=== PATIENT | female | born 1960 | race Caucasian/White ===

== ENCOUNTER 2024-10-06 23:18 | Emergency (ER) | payer BC, SELFPAY ==
[2024-10-06 23:19] VITALS: BMI 24.4
[2024-10-06 23:22] VITALS: BP 178/90
[2024-10-07 00:03] VITALS: BP 160/84
[2024-10-07 00:43] LABS: % Eosinophils 4.5 % (0-6); % Immature Granulocytes 0.6 % (0-0.5); % Lymphocytes 45.7 % (20.5-51.1); % Monocytes 8.8 % (1.7-9.3); % Neutrophils 39.4 % (42.2-75.2); Absolute Basophils 0.1 10^3/uL (0-0.2); Absolute Eosinophils 0.2 10^3/uL (0-0.7); Absolute Lymphocytes 2.2 10^3/uL (1.2-3.4); Absolute Monocytes 0.4 10^3/uL (0.1-0.6); Absolute Neutrophils 1.9 10^3/uL (1.4-6.5); Hematocrit 37.8 % (37.0-47.0); Hemoglobin 13.1 g/dL (12.0-16.0); Mean Corp Hgb Conc. 34.7 g/dL (33.0-37.0); Mean Corpuscular Hgb 30.5 pg (27.0-31.0); Mean Corpuscular Volume 88.1 fL (81.0-99.0); Mean Platelet Volume 9.3 fL (7.4-10.4); Nucleated Red Blood Cells % 0 %; Platelet Count 223 10^3/uL (130-400); Red Blood Cell Count 4.29 10^6/uL (4.20-5.40); Red Cell Dist. Width 12.9 % (11.5-14.5); White Blood Cell Count 4.9 10^3/uL (4.8-10.8)
[2024-10-07 00:48] LABS: ALT (SGPT) 20 U/L (0-35); AST (SGOT) 34 U/L (14-36); Albumin 4.8 g/dl (3.5-5.0); Alkaline Phosphatase 55 U/L (38-126); Blood Urea Nitrogen 20 mg/dl (7-17); Calcium 9.5 mg/dl (8.4-10.2); Carbon Dioxide 25 mmol/L (22-30); Chloride 101 mmol/L (98-107); Estimated Creatinine Clearance 77 ml/min; Glucose 98 mg/dl (70-99); Lipase 127 U/L (23-300); Potassium 4.2 mmol/L (3.5-5.1); Sodium 137 mmol/L (135-145); Total Bilirubin 0.4 mg/dl (0.2-1.3); Total Protein 7.5 g/dl (6.3-8.2); eGFR > 60.00
--- NOTE | 2024-10-07 00:56 | ED.GENMED ---
History of Present Illness
General
Chief Complaint: Chest Pain
Source: patient
Exam Limitations: none
Time Seen by Provider: 10/07/24 00:50
Nursing documentation reviewed up to this point in time: agreed with
History of Present Illness
History of Present Illness:
Patient is a healthy 64-year-old female the past medical history of borderline hyperlipidemia who comes in with complaints of chest pain rating into her back. Patient reports that the symptoms started at around 5 PM and have been fairly constant.
Patient reports that they are mild at this time. She denies any fever and cough. She denies shortness of breath. She denies a history of PE and DVT. Patient reports she has a history of GERD but wants to make sure it is not her heart. She
denies leg pain and leg swelling. Patient reports that she is an avid runner and lately with running, she has had no chest pain at all. Patient reports that her baseline heart rate is in the high 40s.
Past History
Past History
ED Past Medical History: Other (Borderline hyperlipidemia)
ED Past Surgical History: Other
Social History
Tobacco: Non-smoker
Alcohol: Other
Drug: None
Personal:
Living: with family
Employment: Other
Family History
Family History: Other
Review of Systems
Review of Systems
Allergies reviewed?: Yes
All Other Systems: ROS reviewed and negative except as documented in HPI and ROS
Constitutional: Reports no symptoms
EENT: Reports no symptoms
Respiratory: Reports no symptoms
Cardiac: Reports chest pain
ABD/GI: Reports no symptoms
: Reports no symptoms
Musculoskeletal: Reports no symptoms
Skin: Reports no symptoms
Neurological: Reports no symptoms
Endocrine: Reports no symptoms
Hematologic/Lymphatic: Reports no symptoms
Psychiatric: Reports no symptoms
Phy Exam
Physical Exam
Physical Exam:
Physical Exam
General: no apparent distress, not acutely ill. Well and comfortable appearing, smiling
Neck: supple. no meningeal signs. normal psoterior pharynx
Heart: s1/s2 regular rate and rhythm, no murmur. equal radial and femoral pulses bilaterally
Lungs: no acute respiratory distress. clear bilaterally. When patient takes a deep breath, chest discomfort does not get worse
Abdomen: normal bowel sounds. not tender. no CVAT. No pulsatile mass
Neuro: alert and oriented. no focal neurological deficits
Skin: no rash
Psychiatric: well kept. interactive and cooperative
Extremities: no edema. no calf tenderness. negative homans. good distal pulses
Scores
Heart Score for Chest Pain Patients
STEMI patient?: No
History: Slightly or Non-Suspicious
ECG: Normal
Age: >45 - <65 years
Risk Factors: No Risk Factors
Troponin: </= Normal Limit
Heart Score for Chest Pain Patients: 1
Heart Score Risk: 2.5% MACE over next 6 weeks
Course
Orders/Labs/Results
Orders:
Orders
10/06/24 23:26
Electrocardiogram (*1) Urgent
Reason for Study: Chest Pain
Complete Blood Count/With Diff Urgent
Comprehensive Metabolic Panel Urgent
Lipase Urgent
Troponin I Urgent
10/06/24 23:27
EKG- Treatment ONCE
10/07/24 01:23
Mag Hydrox/Al Hydrox/Simeth [Maalox] 30 ml Phenobarb/Hyoscy/Atropine/Scop [] 10 ml Viscous Lidocaine 2% [Xylocaine Viscous Cup] 10 ml PO NOW
10/07/24 01:31
Mag Hydrox/Al Hydrox/Simeth [Maalox] 30 ml .ROUTE .STK-MED ONE
Phenobarb/Hyoscy/Atropine/Scop [] 10 ml .ROUTE .STK-MED ONE
Viscous Lidocaine 2% [Xylocaine Viscous Cup] 15 ml .ROUTE .STK-MED ONE
Abnormal Lab Results
10/07/24
00:14
Immature Gran % 0.6 H %
(0-0.5)
Neutrophils % 39.4 L %
(42.2-75.2)
BUN 20 H mg/dl
(7-17)
10/07/24 00:14
10/07/24 00:14
Vital Signs
Initial and Last Documented VS:
Initial Vital Signs
Temp Pulse Resp BP Pulse Ox
97.4 F 52 18 178/90 100
10/06/24 23:22 10/06/24 23:22 10/06/24 23:22 10/06/24 23:22 10/06/24 23:22
Last Documented Vital Signs
Temp Pulse Resp BP Pulse Ox
97.4 F 41 12 131/79 96
10/06/24 23:22 10/07/24 02:00 10/07/24 02:00 10/07/24 02:00 10/07/24 01:45
*Pulse Oximetry
Patient hypoxic: no
*EKG
Interpreted by ED Provider?: Yes
Interpretation: normal
Comparison EKG: no comparison EKG present
Rate: bradycardiac
Rhythm: sinus
[place]: normal axis
Interval: normal interval
QRS Pattern: normal QRS
Ischemia: non-specific ST changes
*Bobbin Winder Tender Interpretation
Rate: bradycardiac
Interpretation: normal
Rhythm: sinus
*Critical Care Note
Total Time (30-74mins, 75-104mins- exclusive of procedures): Not Applicable
Data Reviewed
Source: patient and family
Patient Management
Social determinants of health affecting care: Living situation and Strong social support
Escalation/DeEscalation of care consider admission/obs:
Patient remains very well and comfortable appearing. Troponin is normal and EKG appears nonischemic. Patient likely has GI related chest pain. GI cocktail made the pain nearly gone. It is doubtful she is aortic dissection given she looks so well
and comfortable.
ED Attending Note
-
Portions of this chart may have been created with voice recognition software.� Occasional wrong word or��sound alike� substitutions may have occurred due to the inherent limitations of voice recognition software.
Discharge Plan
Departure
Patient Disposition: Home (Routine Discharge)
Date of Disposition: 10/07/24
Time of Disposition: 02:01
Patient with high blood pressure during this ER visit?: Yes
Condition: Good
Covid-19: Not Applicable
Discharge Problem:
Chest pain
Instructions: Chest Pain PCP Follow Up
Prescriptions:
New
sucralfate [Carafate] 100 mg/mL suspension
10 ml PO ACHS 10 Days Qty: 400 0RF
Referrals:
Arron Guadalupe MD [Family Provider] -
Interventions
Interventions:
*Risk Screen - Suicide Last Done: 10/06/24 23:22
*General Assessment Last Done: 10/07/24 02:13
*Neglect/Abuse Screening Last Done: 10/06/24 23:22
ED- Fall Risk Assessment Last Done: 10/07/24 00:18
*ED COVID-19 Vaccine History Last Done: 10/07/24 02:13
*Nursing Disposition Last Done: 10/07/24 02:13
ED- Cardiac Assessment Last Done: 10/07/24 00:18
Discharge Date and Time
Discharge Date/Time: 10/07/24 02:17
Print Language: SPANISH
[2024-10-07 00:57] LABS: Troponin I < 0.012 ng/ml
[2024-10-07 01:00] VITALS: BP 153/78
[2024-10-07] MEDS: MAALOX 50 PO (01:33)
[2024-10-07 02:00] VITALS: BP 131/79
== END 2024-10-07 02:17 | disposition home or self-care (01) ==
LOC: EMR 23:18
PROVIDERS: EMERGENCY PHYSICIAN Emergency Medicine; FAMILY PHYSICIAN Internal Medicine
DX: R07.9 Chest pain, unspecified (principal); E78.5 Hyperlipidemia, unspecified; K21.9 Gastro-esophageal reflux disease without esophagitis
CPT/HCPCS: 99284; 80053; 83690; 84484; 85025; 93005